=== PATIENT | female | born 1940 | race Caucasian/White ===

== ENCOUNTER 2022-08-22 00:30 | Day surgery (SDC) | payer MEDICARE, SELFPAY ==
[2022-08-05 15:02] VITALS: BMI 22.3
--- NOTE | 2022-08-21 14:23 | PM.HPGS ---
History of Present Illness History of Present Illness Consent: Risks, benefits, and alternatives have been discussed and questions answered. Patient agrees to proceed with procedure. Chief complaint: positive cologuard Narrative: Linsey Parish is a 82 year old female was referred for colon cancer screening due to the fact that she had a positive Cologuard test. 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) Surgical History Surgical History H/O: hysterectomy History of appendectomy History of tonsillectomy Hx laparoscopic cholecystectomy Family History Family History Father Diabetes mellitus Hypertension Heart disease Sibling Hypertension Colon cancer Grandparent Cerebrovascular accident Daughter Breast cancer Daughter Breast cancer Social History Social History Smoking status: Never smoker Second hand tobacco smoke exposure: No Alcohol intake: current Drinks per week: 7 Alcohol use details: Wine with dinner Substance use: unknown Substance use type: does not use Living arrangements: with family Spiritual care concerns: No Meds Home Medications and Allergies Home Medications Medication Instructions Recorded Confirmed Type alprazolam 0.25 mg tablet 0.25 mg PO BID 06/11/22 08/22/22 History cranberry 500 mg capsule 500 mg PO DAILY 06/11/22 08/22/22 History famotidine 20 mg tablet 20 mg PO BID 06/11/22 08/22/22 History fluticasone propionate 50 1 spray intranasal DAILY PRN 06/11/22 08/22/22 History mcg/actuation nasal Allergy Symptoms spray,suspension (Flonase Allergy Relief) lactobacillus combination no.9 4 4,000 mmu cells PO DAILY 06/11/22 08/22/22 History billion cell capsule (Adult 50 Plus Probiotic) levothyroxine 75 mcg capsule 75 mcg PO DAILY 06/11/22 08/22/22 History omega-3 fatty acids-fish oil 360 1 cap PO DAILY 06/11/22 08/22/22 History mg-1,200 mg capsule (Fish Oil) psyllium husk 0.4 gram capsule 0.4 g PO HS 06/11/22 08/22/22 History (Metamucil) cholecalciferol (vitamin D3) 50 50 mcg PO DAILY 08/05/22 08/22/22 History mcg (2,000 unit) tablet (Vitamin D3) mecobalamin (vitamin B12) 1,000 2,000 mcg PO DAILY 08/05/22 08/22/22 History mcg chewable tablet Allergies Allergy/AdvReac Type Severity Reaction Status Date / Time codeine Allergy Unknown Agitated Verified 08/22/22 06:16 midazolam [From Versed] Allergy Unknown Other Verified 08/22/22 06:16 Exam Const: General: alert Orientation/consciousness: patient oriented x3 Resp: Auscultation: clear to auscultation bilaterally Cardio: Rhythm: regular rhythm GI: GI Palp: Yes Soft to palpation and No Tenderness to palpation present (GI) Neuro: General: patient oriented x3 Assessment and Plan Assessment and plan (1) Colon cancer screening: Code(s): Z12.11 - Encounter for screening for malignant neoplasm of colon Status: Acute Assessment and Plan: Colonoscopy with possible biopsy or polypectomy or cautery or injection of substances.
[2022-08-22 06:17] VITALS: BP 131/84; PULSE 82; RESP 17; TEMP 36.3; O2SAT 99; BMI 22.3
[2022-08-22] MEDS: LACTATED RINGERS 1,000 ML 150 ML IV CONT (06:29)
--- NOTE | 2022-08-22 07:20 | WPDANESEPPF ---
Anes - Initial Pre Proc Eval Procedure: Operation Date: 08/22/22 07:30 Proposed Procedures p Colonoscopy - Nader Billings MD Date/Time: 08/22/22 07:20 Surgeon: Nader Billings MD Pre Op Diagnosis: positive cologuard Patient Data Age: 82 Gender: F Height: 1.63 m Weight: 59 kg Last Vital Signs Temp 97.4 F L 08/22/22 06:17 Pulse 82 08/22/22 06:17 Resp 17 08/22/22 06:17 BP 131/84 08/22/22 06:17 Pulse Ox 99 08/22/22 06:17 O2 Del Method Room Air 08/22/22 06:17 Allergies Allergy/AdvReac Type Severity Reaction Status Date / Time codeine Allergy Unknown Agitated Verified 08/22/22 06:16 midazolam [From Versed] Allergy Unknown Other Verified 08/22/22 06:16 Home Medications Medication Instructions Recorded Confirmed Type alprazolam 0.25 mg tablet 0.25 mg PO BID 06/11/22 08/22/22 History cranberry 500 mg capsule 500 mg PO DAILY 06/11/22 08/22/22 History famotidine 20 mg tablet 20 mg PO BID 06/11/22 08/22/22 History fluticasone propionate 50 1 spray intranasal DAILY PRN 06/11/22 08/22/22 History mcg/actuation nasal Allergy Symptoms spray,suspension (Flonase Allergy Relief) lactobacillus combination no.9 4 4,000 mmu cells PO DAILY 06/11/22 08/22/22 History billion cell capsule (Adult 50 Plus Probiotic) levothyroxine 75 mcg capsule 75 mcg PO DAILY 06/11/22 08/22/22 History omega-3 fatty acids-fish oil 360 1 cap PO DAILY 06/11/22 08/22/22 History mg-1,200 mg capsule (Fish Oil) psyllium husk 0.4 gram capsule 0.4 g PO HS 06/11/22 08/22/22 History (Metamucil) cholecalciferol (vitamin D3) 50 50 mcg PO DAILY 08/05/22 08/22/22 History mcg (2,000 unit) tablet (Vitamin D3) mecobalamin (vitamin B12) 1,000 2,000 mcg PO DAILY 08/05/22 08/22/22 History mcg chewable tablet Patient hx anesthesia problems: none Family hx anesthesia problems: none Results Review: All pre-operative results and documents have been reviewed as part of the pre-operative evaluation. 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) Surgical History Surgical History (Updated 06/11/22 @ 13:18 by Yvrose Blanco CMA) H/O: hysterectomy History of appendectomy History of tonsillectomy Hx laparoscopic cholecystectomy Family History Family History (Updated 06/11/22 @ 13:20 by Yvrose Blanco CMA) Father Diabetes mellitus Hypertension Heart disease Sibling Hypertension Colon cancer Grandparent Cerebrovascular accident Daughter Breast cancer Daughter Breast cancer Social History Social History (Updated 06/11/22 @ 13:21 by Yvrose Blanco CMA) Smoking status: Never smoker Second hand tobacco smoke exposure: No Alcohol intake: current Drinks per week: 7 Alcohol use details: Wine with dinner Substance use: unknown Substance use type: does not use Living arrangements: with family Spiritual care concerns: No Anes - Eval Final PreProcedure Day of Procedure 08/22/22 07:20 Patient weight: normal Heart: regular rate and rhythm Lungs: clear to auscultation Airway: Mallampati scale class II Neurological: alert and oriented Last oral intake: >/= 8 hours ASA classification: III Emergent: no Anesthetic plan: proceed Anesthesia type and monitoring: general GIVS and standard monitoring Results Review: All pre-operative results and documents have been reviewed as part of the pre-operative evaluation. Informed Consent: The patient's anesthetic plan and its attendant risks and benefits were discussed with the patient/family/POA. Questions were solicited and answers provided to the satisfaction of the patient/family/POA.
[2022-08-22 07:53] VITALS: BP 114/64; PULSE 67; RESP 18; O2SAT 98
[2022-08-22 08:03] VITALS: BP 121/64; PULSE 70; RESP 22; O2SAT 99
[2022-08-22 08:16] VITALS: BP 126/73; PULSE 70; RESP 26; O2SAT 100
== END 2022-08-22 08:29 | disposition home or self-care (01) ==
PROVIDERS: PCP Internal Medicine; Visit Provider Internal Medicine Gastroenterology
PROC: 0DJD8ZZ Inspection of Lower Intestinal Tract, Via Natural or Artificial Opening Endoscopic (ICD-10-PCS; CPT 45378; principal; 2022-08-22 07:30)
DX: Z12.11 Encounter for screening for malignant neoplasm of colon (principal); K57.30 Diverticulosis of large intestine without perforation or abscess without bleeding; K64.8 Other hemorrhoids; K62.89 Other specified diseases of anus and rectum; D12.5 Benign neoplasm of sigmoid colon; R19.5 Other fecal abnormalities; E11.9 Type 2 diabetes mellitus without complications; K21.9 Gastro-esophageal reflux disease without esophagitis; F41.9 Anxiety disorder, unspecified; E07.9 Disorder of thyroid, unspecified
CPT/HCPCS: 45380; 45385; 88305; J2704; J7120

== ENCOUNTER 2023-11-06 10:41 | Outpatient (CLI) | payer MEDICARE, SELFPAY ==
--- NOTE | 2023-11-10 12:03 | WPDHOLTEREM ---
Holter/Event Monitor Holter/Event Monitor Date of procedure: 11/06/23 Holter/Event Procedure: 48 Hr Holter Monitor Indications: Palpitations Conclusion: 1. 48 hour holter monitor on 11/06/23. 2. Underlying rhythm is sinus rhythm. HR range 53-113 bpm; average HR 75 bpm. 3. There are 48 premature supraventricular complexes and 1 supraventricular triplet. No supraventricular tachycardia. 4. There are 12,663 premature ventricular complexes, 2 ventricular couplets, 1,746 ventricular trigeminy. No ventricular tachycardia. 5. No sinoatrial or atrioventricular blocks. No significant pauses greater than 2 seconds. 6. No symptoms available for correlation.
== END 2023-11-06 10:42 | disposition home or self-care (01) ==
PROVIDERS: PCP Internal Medicine; Visit Provider Physician Assistant
DX: R00.2 Palpitations (principal)
CPT/HCPCS: 93225; 93226

== ENCOUNTER 2024-07-29 15:00 | Outpatient (CLI) | payer MEDICARE, BC, SELFPAY ==
--- NOTE | ~2024-07-29 | DEXA_ITS ---
Bone Density Report Name: CAROL RANGEL Age: 84 Sex: Female Ethnicity: White Date of : 1940 Indication: postmenopausal; screening for osteoporosis; height loss; hysterectomy; Referring Provider: GISELA, LUKE Olvera Study: Bone densitometry was performed. Exam Date: July 29, 2024 Accession number: [id number] Bone Density: Region BMD T-score Z-score Classification AP Spine(L1-L4) 0.880 -1.5 1.4 Osteopenia Femoral Neck (Left) 0.655 -1.7 0.8 Osteopenia Total Hip (Left) 0.803 -1.1 1.2 Osteopenia Femoral Neck (Right) 0.607 -2.2 0.3 Osteopenia Total Hip (Right) 0.768 -1.4 0.9 Osteopenia Total Hip Mean 0.786 -1.3 1.1 Osteopenia World Health Organization criteria for BMD impression classify patients as: Normal (T-score at or above -1.0), Osteopenia (T-score between -1.0 and -2.5), or Osteoporosis (T-score at or below -2.5). 10-year Fracture Risk(1): Major Osteoporotic Fracture 16% Hip Fracture 5.3% Reported Risk Factors: [place] (), Neck BMD=0.607, BMI=23.9 (1) FRAX(R) Version 3.08. Fracture probability calculated for an untreated patient. Fracture probability may be lower if the patient has received treatment. Clinical Information Provided by Patient: Has used the following medications: Vitamin D Has the following medical conditions: Hysterectomy Patient maximum height was 64 Menopause Age: 35 No regular weight bearing exercise Drinks caffeinated beverages Onset of menses at age 11 Number of children 3 Impression: The patient has low bone mass, based on the Right Femoral Neck T-score. The patient has an estimated ten-year risk of hip fracture of 5.3% and an estimated ten-year risk of major fracture of 16%, based on the WHO FRAX algorithm. Discussion: BONE DENSITY IS LOW AT ONE OR MORE SKELETAL SITES. THE PATIENT'S BMD AND CLINICAL RISK FACTORS CONTRIBUTE TO THIS PATIENT'S INCREASED RISK OF FRACTURE. This patient's lowest T-score is low at one or more skeletal sites. It meets the World Health Organization's (WHO) criteria for ?low bone mass? (T-score between -1.0 and -2.5). The patient's 10-year risk of hip fracture as calculated by FRAX exceeds the threshold where pharmacological therapy is recommended by the National Osteoporosis Foundation (NOF). However, all treatment decisions require clinical judgment and consideration of individual patient factors, including patient preferences, comorbidities, previous drug use, risk factors not captured in the FRAX model (e.g., frailty, falls, vitamin D deficiency, increased bone turnover, interval significant decline in bone density) and possible under or overestimation of fracture risk by FRAX. The patient should follow a healthful lifestyle (good nutrition with adequate calcium and vitamin D, and appropriate weight-
== END 2024-07-29 15:01 | disposition home or self-care (01) ==
LOC: ANHIMG 15:01
PROVIDERS: PCP Internal Medicine; Visit Provider Physician Assistant
DX: M85.89 Other specified disorders of bone density and structure, multiple sites (principal); Z78.0 Asymptomatic menopausal state
CPT/HCPCS: 77080

== ENCOUNTER 2025-01-21 13:28 | Outpatient (CLI) | payer MEDICARE, BC, SELFPAY ==
--- NOTE | 2025-01-21 13:48 | ECHO_ITS ---
Patient Info Name: Linsey Parish Age: 84 years : 1940 Gender: Female Ht: 64 in Wt: 136 lbs BSA: 1.68 m2 HR: 74 bpm BP: 156 / 80 mmHg Technical Quality: Good Exam Date: 01/21/2025 1:51 PM Exam Location: Echo Lab Patient Status: Outpatient Admit Date: 01/21/2025 Staff Ordering Physician: Erik Simpson DO Trauma Surgeon: Ramya Esparza RDCS Attending Provider: Erik Simpson DO Referring Physician: Tatiana MCCALLUM; Exam Type: CA echo doppler color flow Study Info Indications R00.2 - Palpitations Complete two-dimensional, color flow and Doppler transthoracic echocardiogram is performed. Summary 1. Complete two-dimensional, color flow and Doppler transthoracic echocardiogram is performed. 2. Left ventricular chamber dimension is normal. 3. Ventricular septum is sigmoid shaped. No resting LVOT obstruction. 4. Left ventricular systolic function is normal, estimated at 60-65%. 5. The left ventricular diastolic function is grade I diastolic dysfunction. 6. E/e' 13 is mildly elevated. 7. Left atrial chamber dimension is mildly enlarged. 8. There is mild aortic valve sclerosis. 9. There is trace aortic valve regurgitation. 10. The mitral valve has mildly calcified annulus. 11. There is mild to moderate mitral valve regurgitation. 12. There is trace tricuspid valve regurgitation. 13. No pulmonary hypertension, estimated pulmonary arterial systolic pressure is 23 mmHg. Left Ventricle E/e' 13 is mildly elevated. Ventricular septum is sigmoid shaped. No resting LVOT obstruction. Left ventricular chamber dimension is normal. Left ventricular systolic function is normal, estimated at 60-65%. The left ventricular diastolic function is grade I diastolic dysfunction. Right Ventricle Right ventricular chamber dimension is normal. Right ventricular systolic function is normal. Left Atria Left atrial chamber dimension is mildly enlarged. Right Atria Right atrial chamber dimension is normal. Aortic Valve The aortic valve is trileaflet. There is mild aortic valve sclerosis. There is no aortic valve stenosis. There is trace aortic valve regurgitation. Pulmonic Valve There is no pulmonic regurgitation. Mitral Valve The mitral valve has mildly calcified annulus. There is no mitral valve stenosis. There is mild to moderate mitral valve regurgitation. Tricuspid Valve There is trace tricuspid valve regurgitation. No pulmonary hypertension, estimated pulmonary arterial systolic pressure is 23 mmHg. Pericardium/Pleural There is no pericardial effusion. Inferior Vena Cava Normal inferior vena cava with >50% collapse upon inspiration consistent with normal right atrial pressure, 5 mmHg. Aorta The aortic root size at the sinus of Valsalva is normal. Left Ventricular Outflow Tract Name Value Normal LVOT 2D LVOT Diameter 1.9 cm LVOT Doppler LVOT Peak Gradient 2 mmHg LVOT Mean Gradient 1 mmHg LVOT VTI 17 cm LVOT VTI/AV VTI Ratio 0.8 LVOT Stroke Volume 48 ml LVOT CO 9.0 l/min LVOT CI 5.3 l/min/m2 Pulmonic Valve Name Value Normal PV Doppler PV Peak Gradient 2 mmHg Mitral Valve Name Value Normal MV Doppler MV Decel [place] 312 cm/s2 MV PHT 76 ms MV Area (PHT) 2.9 cm2 4.0-5.0 MV Diastolic Function MV E Peak Velocity 82 cm/s MV A Peak Velocity 112 cm/s MV E/A 0.7 MV Decel Time 263 ms MV Annular TDI MV E/e' (Septal) 16.1 <=8.0 MV E/e' (Lateral) 11.4 <=8.0 MV E/e' (Average) 13.8 Tricuspid Valve Name Value Normal TV Regurgitation Doppler TR Peak Velocity 211 cm/s TR Peak Gradient 18 mmHg Estimated PAP/RSVP RA Pressure 5 mmHg <=5 PA Systolic Pressure 23 mmHg <36 RV Systolic Pressure 23 mmHg <36 Aorta Name Value Normal Ascending Aorta Ao Root Diameter (MM) 3.0 cm Ao Root Diam Index (MM) 1.8 cm/m2 Aortic Valve Name Value Normal AV Doppler AV Peak Velocity 102 cm/s AV Peak Gradient 4 mmHg AV Mean Gradient 2 mmHg AV VTI 23 cm AV Area (Cont Eq VTI) 2.1 cm2 >=3.0 AV Area (Cont Eq Charly) 1.9 cm2 AV Regurgitation 2D LVOT Area 2.8 cm2 Ventricles Name Value Normal LV Dimensions 2D/MM IVS Diastolic Thickness (2D) 1.1 cm 0.6-1.0 LVID Diastole (2D) 3.9 cm 3.8-5.2 LVIW Diastolic Thickness (2D) 1.0 cm 0.6-0.9 LVID Systole (2D) 2.3 cm 2.2-3.5 LVOT Diameter 1.9 cm LV Mass (2D Cubed) 132.00 g 67.00-162.00 LV Mass Index (2D Cubed) 79 g/m2 43-95 Relative Wall Thickness (2D) 0.51 LV Fractional Shortening/Ejection Fraction 2D/MM LV Fractional Shortening (2D) 41 % 27-45 LV EF (2D Teicholz) 73 % 54-74 LV Diastolic Volume (4C MOD) 72 ml LV EF (4C MOD) 61 % LV Diastolic Volume (2C MOD) 76 ml LV EF (2C MOD) 64 % LV Diastolic Volume (BP MOD) 75 ml 46-106 LV Diastolic Volume Index (BP MOD) 45 ml/m2 29-61 LV Systolic Volume (BP MOD) 28 ml 14-42 LV Systolic Volume Index (BP MOD) 16 ml/m2 8-24 LV EF (BP MOD) 63 % 54-74 LV Diastolic Length (4C) 6.6 cm LV Systolic Length (4C) 5.4 cm LV Stroke Volume (4C MOD) 44 ml RV Dimensions 2D/MM RVID Diastole (2D) 3.4 cm 2.5-3.5 Atria Name Value Normal LA Dimensions LA Dimension (MM) 3.3 cm 2.7-3.8 LA Volume (4C A-L) 55 ml LA Volume (BP A-L) 58 ml RA Dimensions RA Area (4C) 11.3 cm2 <=18.0 Report Signatures
--- OUTSIDE RECORDS SUMMARY | 2025-01-21 13:58 | XMS_ITS | Referral Summary ---
Author Organization [facility] Address [address] [place] [address] Care Team Providers Care Learning And Development Officer Name Role Phone Cristofer Solis MD Primary Care Provider [phone] Allergies Active Allergy Reactions Criticality Noted Date Comments Codeine Palpitations Reaction: Altered Heart Rate, Midazolam Palpitations Low Reaction: tachycardia, Medications fluticasone (FLONASE) 50 mcg/actuation nasal spray USE 2 SPRAYS IN EACH NOSTRIL ONCE DAILY 48 0 01/29/2010 Active levothyroxine (LEVOTHROID) 100 mcg tablet TAKE 1 TABLET BY ORAL ROUTE EVERY DAY 90 3 09/02/2013 Active acetaminophen (TYLENOL) 325 mg tablet 325 mg. 0 0 07/21/2013 Active omega-3 fatty acids (FISH OIL) 300 mg capsule 300 mg. 0 0 07/21/2013 Active b complex vitamins (VITAMINS B COMPLEX) tablet 0 0 07/21/2013 Active ergocalciferol (VITAMIN D2) 50,000 unit capsule 0 0 07/21/2013 Active cholecalciferol (VITAMIN D-3) 2,000 unit tablet Take 1 tablet (2,000 Units total) by mouth daily Active omeprazole (PriLOSEC) 20 mg capsule Take 1 capsule (20 mg total) by mouth daily Active ALPRAZolam (XANAX) 0.25 mg tablet TAKE 1 TABLET BY MOUTH EVERY 4 HOURS NEEDED 100 tablet 05/12/2017 Active blood glucose diagnostic (ACCU-CHEK [place] PLUS TEST STRP) stripIndication s:DX E11.9 Test by finger stick twice a day 200 each 05/13/2017 Active lancets (ACCU-CHEK SOFTCLIX LANCETS) miscIndications :Type 2 diabetes mellitus without complication, without long-term current use of insulin (HCC) 200 each by other route as directed. Test by finger stick twice a day 200 each 05/13/2017 Active cyanocobalamin 2,000 mcg tablet Take 1 tablet (2,000 mcg total) by mouth daily Takes 3000 mcg daily Active meloxicam (MOBIC) 7.5 mg tabletIndicatio ns:Acute pain of right knee,Pes anserine bursitis Take 1 tablet (7.5 mg total) by mouth daily for 14 days 14 tablet 10/28/2023 Active Active Problems Problem Noted Date Diagnosed Date Diverticulosis of colon 10/28/2023 Gall stones 07/02/2017 Assessment & Plan (07/02/2017 11:53 AM CDT): Epigastric pain that radiates around the right upper abdomen to the back, Positive for nausea and vomiting, Will plan for lap matt Diabetes mellitus 03/19/2014 Overview (02/05/2017): Diabetes Skin lesion 07/21/2013 Overview (02/06/2017): Skin lesion of back Immunizations Immunization Administration Dates Next Due Influenza, Split 08/27/2010,09/02/2009 Influenza, Trivalent, High D ose, Split, Preservative Free, Intramuscular 08/15/2016 Influenza, Trivalent, IM (MDV) 5,08/08/2014,08/24/2013,08/22,08/17/2011 Pneumococcal Conjugate PCV 13 08/23/2015 Pneumococcal Polysaccharide PPV23 08/24/2010 Tetanus toxoid, adsorbed 05/01/2004 Social History Tobacco Use Types Packs/Day Years Used Date Smoking Tobacco: Never Smokeless Tobacco: Never Alcohol Use Standard Drinks/Week Comments No 0 (1 standard drink = 0.6 oz pur e alcohol) vary rarely Comments No Sex and Gender Information Value Date Recorded Sex Assigned at Not on file Legal Sex Female 12:22 AM REGISTERED NURSE Gender Identity Not on file Sexual Orientation Not on file Last Filed Vital Signs Vital Sign Reading Time Taken Comments Blood Pressure 133/56 12/29/2018 11:00 AM REGISTERED NURSE Pulse 96 12/29/2018 11:00 AM REGISTERED NURSE Temperature 37 C (98.6 F) 12/29/2018 10:19 AM REGISTERED NURSE Respiratory Rate 13 12/29/2018 11:00 AM REGISTERED NURSE Oxygen Saturation 97% 12/29/2018 11:00 AM REGISTERED NURSE Inhaled Oxygen Concentration - - Weight 61.2 kg (135 lb) 01/06/2024 10:39 AM REGISTERED NURSE Height 162.6 cm (5' 4 ) 01/06/2024 10:39 AM REGISTERED NURSE Body Mass Index 23.17 01/06/2024 10:39 AM REGISTERED NURSE Plan of Treatment Not on file Procedures Procedure Name Priority Date/Time Associated Diagnosis Comments EGFR STAT 12/29/2018 8:09 AM REGISTERED NURSE SERUM LIPID PANEL Routine 04/16/2016 7:5 0 AM CDT from Last 3 Months or Most Recently Relevant to Health Maintenance Results * eGFR (12/29/2018 8:09 AM REGISTERED NURSE) eGFR 82 mL/min/1.7 3 m2 [facility] Comment: Interpretive Data Reference Interval Normal >/= 90 mL/min/1.73m2 Mildly decreased* 60 - 89 mL/min/1.73m2 Mildly to moderately decreased 45 - 59 mL/min/1.73m2 Moderately to severely decreased 30 - 44 mL/min/1.73m2 Severely decreased 15 - 29 mL/min/1.73m2 Kidney Failure < 15 mL/min/1.73m2 *Relative to young adult level If -Mauritanian multiply value by 1.16. Estimated glomerular filtration rate is determined by the CKD-EPI equation recommended by the National Kidney Foundation (KDIGO 2012 Clinical Practice Guideline for the Evaluation and Management of Chronic Kidney Disease. Kidney Intnl Suppl Nov 2012;3:1). The CKD-EPI equation should not be used for patients with unstable renal function and has not been validated in children and those over 70. Current interpretive data was last reviewed 2016. Blood specimen (specimen) 12/29/2018 8:09 AM REGISTERED NURSE 12/29/2018 8:17 AM REGISTERED NURSE Narrative [facility] - 12/29/2018 8:44 AM REGISTERED NURSE us Norah Gomez MD LAB BLOOD ORDERABLE S Final Result [facility] [address] [facility] Department [place] [address] * (ABNORMAL) Serum lipid panel (04/16/2016 7:50 AM CDT) Cholesterol 212(H) 40 - 199 mg/dl HISTORICAL RESULTS Comment: Interpretive Data Desirable: Less than 200 mg/dl Borderline High: 200 - 239 mg/dl High: Greater than 239 mg/dl Current interpretive data was last revised on 2014. Triglycerides 107 <=150 mg/dl HISTORICAL RESULTS Comment: Interpretive Data Normal: Less than 150 mg/dl Borderline high: 105-199 mg/dl High: 200-499 mg/dl Very high: Greater than or equal to 500 mg/dl Current interpretive data was last revised on 2014. HDL 72(H) 40 - 60 mg/dl HISTORICAL RESULTS Comment: Interpretive Data Low HDL Cholesterol: Less than 40 mg/dl Normal HDL Cholesterol: 40-60 mg/dl High HDL Cholesterol: Greater than 60 mg/dl Current interpretive data was last revised on 2014. LDL 119 mg/dl HISTORICAL RESULTS Comment: Interpretive Data Optimal Less than 100 mg/dL Near optimal/Above optimal 100 - 129 mg/dL Borderline high 130 - 159 mg/dL High 160 - 189 mg/dL Very high Greater than or = 190 mg/dL LDL values are not valid when the total Triglyceride is greater than 300 mg/dL. Current interpretive data was last revised on 2014. Non-HDL cholesterol, calculated 140 mg/dl HISTORICAL RESULTS Comment: Interpretive Data Optimal Less than 130 mg/dL Low Risk 130 - 159 mg/dL Moderate Risk 160 - 189 mg/dL High Risk Greater than or equal to 190 mg/dL Current interpretive data was last revised on 2014. Serum 04/16/2016 7:50 AM CDT us Historical Provider LAB BLOOD ORDERABLES Snoia heart Result HISTORICAL RESULTS from Last 3 Months or Most Recently Relevant to Health Maintenance Insurance [facility] Member Subscriber Plan / Payer (Ef fective 2018-Present) Name:Linsey Rangel Relation to Subscriber:Self Name:LINSEY RANGEL Payer ID:[id number] (NAIC) Type:[facility] Address: [address] [place] [id number] MEDICARE BLUE TRADITIONAL OOS MEDICARE BLUE TRADITIONAL OOS MEDICARE Care Teams Learning And Development Officer Relationship Specialty Start Date End Date Cristofer Solis MD [id number] [facility] [address] [place] [address] PCP - General Internal Medicine 01/07/24
--- OUTSIDE RECORDS SUMMARY | 2025-01-21 13:58 | XMS_ITS | Clinical Summary ---
Author Organization [facility] Address [address] [place] [address] Care Team Providers Care Slot Service Specialist Name Role Phone Cristofer Solis MD Primary Care Provider [phone] Allergies Active Allergy Reactions Criticality Noted Date [...] Polysaccharide PPV23 08/24/2010 Tetanus toxoid, adsorbed 05/01/2004 Surgical History Surgery Date Site/Laterality Comments HYSTERECTOMY Hysterectomy APPENDECTOMY Appendectomy RECTOCELE REPAIR rectocele repair OTHER SURGICAL HISTORY basal cell skin lesion on scalp left side TONSILLECTOMY Tonsillectomy CHOLECYSTECTOMY 07/04/2017 lap cholecystectomy Medical History Medical History Date Comments Hx Other Medical Skin / basal ce ll cancer Hx Other Medical Diabetes / diet controlled Hx Other Medical moles needed re moval; Comments: sending moles that were removed to pathology. Diabetes mellitus (HCC) Anxiety Arthritis Cancer (HCC) Colon polyp Diverticulosis GERD (gastroesophageal reflux disease) HL (hearing loss) Thyroid disease Varicella Family History Medical History Relation Name Comments Heart disease Brother Coronary artery disease Father Jonathan nary artery disease; Cause of : Coronary artery disease/Coronary artery disease; Diabetes Father Diabetes mellit us; Hypertension Father Hypertension; Other Mother pnuemonia; Caus e of : pnuemonia Relation Name Status Comments Brother Alive Father Mother (Age 26) Social History Tobacco Use Types Packs/Day Years Used Date Smoking Tobacco: Never Smokeless Tobacco: Never Alcohol Use Standard Drinks/Week Comments No 0 (1 standard drink = 0.6 oz pur e alcohol) vary rarely Comments No Sex and Gender Information Value Date Recorded Sex Assigned at Not on file Legal Sex Female 12:22 AM ED TEACHER Gender Identity Not on file Sexual Orientation Not on file Obstetrics History Last Filed Vital Signs Vital Sign Reading Time Taken Comments Blood Pressure 133/56 12/29/2018 11:00 AM ED TEACHER Pulse 96 12/29/2018 11:00 AM ED TEACHER Temperature 37 C (98.6 F) 12/29/2018 10:19 AM ED TEACHER Respiratory Rate 13 12/29/2018 11:00 AM ED TEACHER Oxygen Saturation 97% 12/29/2018 11:00 AM ED TEACHER Inhaled Oxygen Concentration - - Weight 61.2 kg (135 lb) 01/06/2024 10:39 AM ED TEACHER Height 162.6 cm (5' 4 ) 01/06/2024 10:39 AM ED TEACHER Body Mass Index 23.17 01/06/2024 10:39 AM ED TEACHER Plan of Treatment Health Maintenance Due Date Last Done Comments Albumin Creatinine Ratio, Urine 1939 Fall Risk Assessment 1939 Hemoglobin A1C 1939 Osteoporosis Screening-Bone Density Scan 1939 Dilated Eye Exam 1939 Foot Exam 1939 Hepatitis B Screening 1957 Well Visit 65+ 2004 Lipid Panel 04/16/2017 04/16/2016, 10/03, 03/31/2015, Additional history exists Depression Screening 06/27/2018 06/27/2017, 04/15/20 17 eGFR 12/29/2019 12/29/2018, 06/04, 04/08/2017, Additional history exists Covid-19 Vaccine (2023-2 5 season) 2024 08/19/2023, 09/30/2022, 04/26/2022, Additional history exists Influenza Vaccine (#1) 2024 3, 07/12/2022, 07/27/2021, Additional history exists DTaP/Tdap/Td Vaccine (3 - Td or Tdap) 03/12/2028 03/12/2018, 11/03/2004, 05/01/2004 Pneumococcal vaccine 65+ Completed , 08/23/2015, 08/24/2010, Additional history exists Zoster Vaccine Completed 10/15/2019, 08/03, 09/27/2008 Procedures Procedure Name Priority Date/Time Associated Diagnosis Comments EGFR STAT 12/29/2018 8:09 AM ED TEACHER SERUM LIPID PANEL Routine 04/16/2016 7:5 0 AM CDT from Last 3 Months or Most Recently Relevant to Health Maintenance Results * eGFR (12/29/2018 8:09 AM ED TEACHER) eGFR 82 mL/min/1.7 3 m2 [facility] ([place]) Comment: Interpretive Data Reference Interval Normal >/= 90 mL/min/1.73m2 Mildly decreased* 60 - 89 mL/min/1.73m2 Mildly to moderately decreased 45 - 59 mL/min/1.73m2 Moderately to severely decreased 30 - 44 mL/min/1.73m2 Severely decreased 15 - 29 mL/min/1.73m2 Kidney Failure < 15 mL/min/1.73m2 *Relative to young adult level If -Syrian multiply value by 1.16. Estimated glomerular filtration [...] 2016. Blood specimen (specimen) 12/29/2018 8:09 AM ED TEACHER 12/29/2018 8:17 AM ED TEACHER Narrative [facility] ([place]) - 12/29/2018 8:44 AM ED TEACHER us Norah Gomez MD LAB BLOOD ORDERABLE S Final Result [facility] ([place]) 1 [facility] Department [place] [address] * (ABNORMAL) Serum lipid panel (04/16/2016 7:50 [...] CDT us Historical Provider LAB BLOOD ORDERABLES Sonia heart Result HISTORICAL RESULTS from Last 3 Months or Most Recently Relevant to Health Maintenance Insurance MEDICARE [facility] MEDICARE BLUE TRADITIONAL OOS MEDICARE BLUE TRADITIONAL OOS MEDICARE Care Teams Slot Service Specialist Relationship Specialty Start Date End Date Cristofer Solis MD [address] [facility] [address] [place] [address] PCP - General Internal Medicine 01/07/24
--- OUTSIDE RECORDS SUMMARY | 2025-01-21 13:59 | XMS_ITS | Patient Health Record ---
Author Organization [facility] Address [address] [facility] [place]. [address] [place] [address] Care Team Providers Care Warp Placer Name Role Phone Gaudencio MOYA, Amanda Primary Care Provider Dale Cristobal [facility] [phone] Allergies Allergen (clinical drug ingredient) Drug/Non Drug Allergy documented on EMR Reaction Allergy Type Onset Date Status codeine Codeine Sulfate hyperactive Drug Allergy Active midazolam Midazolam HCl tachycardia Drug Allergy A ctive Reason For Referral No Information Medications Medication SIG (Take, Route, Frequency, Duration) Notes Start Date End Date Status ALPRAZolam Active Levothyroxine Sodium Active OTC/Vitamins VItamin B12, Vitamin D3, Vitamin C Active Fluticasone Propionate Active Pantoprazole Sodium 40mg daily Active Famotidine 20mg daily Active Immunizations Vaccine Route Administration Date Status Comme nts Influenza Vaccination Unknown 08/03/2018 Administered Social History Tobacco Use: Social History Observation Description Date Details (start date - stop date) Never Smoker NA - NA Tobacco Use/Smoking Question Answer Notes Are you a nonsmoker Problems Problem Type SNOMED Code ICD Code Onset Dates Problem Status W/U Status Risk Notes Problem 023984077 Diverticulosis o f colon (without mention of hemorrhage) (K57.30) Active confirmed Plan Of Treatment Future Test Test Name Order Date ALKALINE PHOSPHATASE ISOENZYMES 04/13/20 19 HEPATITIS B SURFACE ANTIBODY QL 04/13/20 19 Insurance Providers Payer Name Payer Address Payer Phone Subscriber Number Group Number Insured Name Patient Relationship to Insured Coverage Start Date Coverage End Date Medicare E2 [address] [address] [place] [address] [id number] [place] Self - patient is the insured 5 Blue Access PPO E2 [address] [place] [address] [id number] [place] Self - patient is the insured Medical (General) History Medical History History ICD Code GERD Diverticulosis/Diverticulitis Hiatal hernia Diabetes Hearing Loss Surgical History Surgery Date(Month/Year) EGD: Z-line irregular, at th e gastroesophageal junction. Small hiatal hernia. Erythematous mucosa in the antrum. Normal examined duodenum. 01/2018 Tonsillectomy Appendectomy Hysterectomy Rectocele Repair Cholecystectomy 2017 Hospitalization History Reason Date(Month/Year) ERCP 2019
== END 2025-01-21 13:29 | disposition home or self-care (01) ==
PROVIDERS: PCP Internal Medicine; Visit Provider Internal Medicine
DX: R94.30 Abnormal result of cardiovascular function study, unspecified (principal); R00.2 Palpitations
CPT/HCPCS: 93306

== ENCOUNTER 2025-06-22 10:53 | Outpatient (CLI) | payer MEDICARE, SELFPAY ==
--- NOTE | ~2025-06-22 | XR_ITS ---
Right Knee Technique: AP, lateral, and sunrise views were obtained. Clinical History: Pain Findings: No fracture or dislocation is seen. Osseous alignment is anatomic. Mild degenerative changes are present with any. Soft tissues are unremarkable. No joint effusion is seen. Impression: Mild degenerative change. Reviewed, dictated and finalized at [facility]. Impression: Mild degenerative change.
--- NOTE | ~2025-06-22 | XR_ITS ---
Left Knee Technique: AP, lateral, and sunrise views were obtained. Clinical History: Pain Findings: No fracture or dislocation is seen. Osseous alignment is anatomic. Joint spaces are preserved, with minimal degenerative spurring. Soft tissues are unremarkable. No joint effusion is seen. Impression: Minimal degenerative change. Reviewed, dictated and finalized at [facility]. Impression: Minimal degenerative change.
--- OUTSIDE RECORDS SUMMARY | 2025-06-22 11:31 | XMS_ITS | Clinical Summary ---
Author Organization [facility] Address [address] [place] [address] Care Team Providers Care Psychiatric Orderly Name Role Phone Crisotfer Solis MD Primary Care Provider [phone]- [phone] Allergies Active Allergy Reactions Criticality Noted Date [...] on file Legal Sex Female 12:22 AM REFERRAL AND INFORMATION AIDE Gender Identity Not on file Sexual Orientation Not on file Obstetrics History Last Filed Vital Signs Vital Sign Reading Time Taken Comments Blood Pressure 133/56 12/29/2018 11:00 AM REFERRAL AND INFORMATION AIDE Pulse 96 12/29/2018 11:00 AM REFERRAL AND INFORMATION AIDE Temperature 37 C (98.6 F) 12/29/2018 10:19 AM REFERRAL AND INFORMATION AIDE Respiratory Rate 13 12/29/2018 11:00 AM REFERRAL AND INFORMATION AIDE Oxygen Saturation 97% 12/29/2018 11:00 AM REFERRAL AND INFORMATION AIDE Inhaled Oxygen Concentration - - Weight 61.2 kg (135 lb) 01/06/2024 10:39 AM REFERRAL AND INFORMATION AIDE Height 162.6 cm (5' 4) 01/06/2024 10:39 AM REFERRAL AND INFORMATION AIDE Body Mass Index 23.17 01/06/2024 10:39 AM REFERRAL AND INFORMATION AIDE Plan of Treatment Health Maintenance Due Date [...] 04/26/2022, Additional history exists Influenza Vaccine (#1) 2025 , 07/12/2022, 07/27/2021, Additional history exists DTaP/Tdap/Td Vaccine (3 - Td or Tdap) 03/12/2028 03/12/2018, 11/03/2004, 05/01/2004 Pneumococcal vaccine 65+ Completed , 08/23/2015, 08/24/2010, Additional history exists Zoster Vaccine Completed 10/15/2019, 08/03, 09/27/2008 Procedures Procedure Name Priority Date/Time Associated Diagnosis Comments EGFR STAT 12/29/2018 8:09 AM REFERRAL AND INFORMATION AIDE SERUM LIPID PANEL Routine 04/16/2016 7: 50 AM CDT from Last 3 Months or Most Recently Relevant to Health Maintenance Results * eGFR (12/29/2018 8:09 AM REFERRAL AND INFORMATION AIDE) eGFR 82 mL/min/1.7 3 m2 [facility] Comment: Interpretive Data Reference Interval Normal >/= 90 mL/min/1.73m2 Mildly decreased* 60 - 89 mL/min/1.73m2 Mildly to moderately decreased 45 - 59 mL/min/1.73m2 Moderately to severely decreased 30 - 44 mL/min/1.73m2 Severely decreased 15 - 29 mL/min/1.73m2 Kidney Failure < 15 mL/min/1.73m2 *Relative to young adult level If -Eritrean multiply value by 1.16. Estimated glomerular filtration [...] 2016. Blood specimen (specimen) 12/29/2018 8:09 AM REFERRAL AND INFORMATION AIDE 12/29/2018 8:17 AM REFERRAL AND INFORMATION AIDE Narrative [facility] ([place]) - 12/29/2018 8:44 AM REFERRAL AND INFORMATION AIDE us Norah Gomez MD LAB BLOOD ORDERABLE S Final Result [facility] ([place]) [address] [facility] Department [place] [address] * (ABNORMAL) Serum lipid panel (04/16/2016 7:50 [...] Recently Relevant to Health Maintenance Insurance MEDICARE [facility] Member Subscriber Plan / Payer (Ef fective 2018-Present) Name:Linsey Rangel Relation to Subscriber:Self Name:LINSEY RANGEL Payer ID:[id number] (NAIC) Type:[facility] Address: [address] [place] [id number] MEDICARE BLUE TRADITIONAL OOS MEDICARE BLUE TRADITIONAL OOS MEDICARE Care Teams Psychiatric Orderly Relationship Specialty Start Date End Date Cristofer Solis MD [address] [facility] [address] [place] [address] PCP - General Internal Medicine 01/07/24
--- OUTSIDE RECORDS SUMMARY | 2025-06-22 11:31 | XMS_ITS | Patient Health Record ---
Author Organization [employer] Address [address] [facility]. [address] [place] [address] Care Team Providers Care Disc Inspector Name Role Phone Gaudencio MOYA, Amanda Primary Care Provider Dale Cristobal [facility] [phone] Allergies Allergen (clinical drug ingredient) Drug/Non Drug [...] Problem Status W/U Status Risk Notes Problem [id number] Diverticulosis o f colon (without mention of hemorrhage) (K57.30) Active confirmed Plan Of Treatment Future Test Test Name Order Date ALKALINE PHOSPHATASE ISOENZYMES 04/13/20 19 HEPATITIS B SURFACE ANTIBODY QL 04/13/20 19 Insurance Providers Payer Name Payer Address Payer Phone Subscriber Number Group Number Insured Name Patient Relationship to Insured Coverage Start Date Coverage End Date Medicare E2 [address] [address] [place] [address] [id number] [place] Self - patient is the insured 5 Blue Access PPO E2 [address] [place] [address] [id number] [place] Self - patient is the [...]
== END 2025-06-22 10:54 | disposition home or self-care (01) ==
PROVIDERS: PCP Internal Medicine; Visit Provider Internal Medicine
DX: M25.561 Pain in right knee (principal); M25.562 Pain in left knee
CPT/HCPCS: 73562